=== PATIENT | male | born 2000 | race Caucasian/White ===

== ENCOUNTER 2023-05-14 23:41 | Emergency (ER) | payer SELFPAY ==
[2023-05-14 23:46] VITALS: BP 121/76; PULSE 69; RESP 18; TEMP 97.7; BMI 33.4
[2023-05-15] MEDS ORDERED: DIPHTH,PERTUSS(ACELL),TET 0.5 ML DISP.SYRIN IM ONE ×2 (00:03→00:13)
[2023-05-15] MEDS ORDERED: AMOX TR/POT CLAV 875MG/125MG TABLETS (FP) PO ONE (00:03)
[2023-05-15] MEDS ORDERED: ACETAMINOPHEN 500 MG TABLET (FP) PO ONE (00:06)
[2023-05-15] MEDS ORDERED: AMOX TR/POT CLAV 875MG/125MG TABLETS (FP) ONE (00:12)
[2023-05-15] MEDS ORDERED: ACETAMINOPHEN 325 MG TABLET (FP) ONE (00:13)
== END 2023-05-15 00:17 | disposition home or self-care (01) ==
LOC: JER 23:41
PROC: 3E0234Z Introduction of Serum, Toxoid and Vaccine into Muscle, Percutaneous Approach (ICD-10-PCS; principal; 2023-05-15)
DX: S01.111A Laceration without foreign body of right eyelid and periocular area, initial encounter (principal); S01.151A Open bite of right eyelid and periocular area, initial encounter; R51.9 Headache, unspecified; W54.0XXA Bitten by dog, initial encounter
CPT/HCPCS: 90715; 99283-25